=== PATIENT | female | born 1965 | race Caucasian/White ===

== ENCOUNTER 2024-12-19 17:08 | Emergency (ER) | payer OTHER, SELFPAY ==
--- NOTE | ~2024-12-19 | XR_ITS ---
HISTORY: rolled injury/lateral pain COMPARISON: None TECHNIQUE: 3 views of the left ankle were performed FINDINGS: Acute comminuted fracture of the distal fibula is identified with significant overlying soft tissue s welling. The ankle mortise is preserved. Bone mineralization is age-appropriate. IMPRESSION: Acute comminuted fracture of the distal fibula with significant overlying soft tissue sw elling. Reviewed, dictated and finalized at location A. [facility] IMPRESSION: Acute comminuted fracture of the distal fibula with significant ov erlying soft tissue swelling.
--- OUTSIDE RECORDS SUMMARY | 2024-12-19 17:21 | XMS_ITS | Clinical Summary ---
Author Organization [facility] Address [address] [place] [phone] Phone Care Team Providers Care Family Program Specialist Name Role Phone Melissa Corrigan MD Primary Care Provider [phone] Allergies Active Allergy Reactions Criticality Noted Date Comments Penicillins Nausea and Vomiting High 06/06/2019 Medications No known medications Active Problems Problem Noted Date Diagnosed Date Closed fracture of right tibial plateau Closed fracture of right proximal tibia Family History Medical History Relation Name Comments Unknown Father Unknown Mother Relation Name Status Comments Father Mother Social History Tobacco Use Types Packs/Day Years Used Date Smoking Tobacco: Never Smokeless Tobacco: Never Tobacco Cessation:Counseling Given: No Alcohol Use Standard Drinks/Week Comments Yes 0 (1 standard drink = 0.6 oz pur e alcohol) rarely Feeling Safe Answer Date Recorded Within the last year, have y ou been afraid of your partner or ex-partner? Patient declined 12/19/2020 Within the last year, have y ou been humiliated or emotionally abused in other ways by your partner or ex-partner? Patient declined 12/19/2020 Within the last year, have y ou been kicked, hit, slapped, or otherwise physically hurt by your partner or ex-partner? Patient declined 12/19/2020 Within the last year, have y ou been raped or forced to have any kind of sexual activity by your partner or ex-partner? Patient declined 12/19/2020 Social Connections Answer Date Recorded In a typical week, how many times do you talk on the phone with family, friends, or neighbors? Patient declined 12/19/2020 How often do you get togethe r with friends or relatives? Patient declined 12/19/2020 How often do you attend denominational or worship serv ices? Patient declined 12/19/2020 Do you belong to any clubs o r organizations such as denominational groups, unions, fraternal or athletic groups, or school groups? Patient declined 12/19/2020 How often do you attend meet ings of the clubs or organizations you belong to? Patient declined 12/19/2020 Are you , , di vorced, , never , or living with a partner? Patient declined 12/19/2020 Financial Resource Strain Answer Date R ecorded How hard is it for you to pa y for the very basics like food, housing, medical care, and heating? Patient declined 12/19/2020 Food Insecurity Answer Date Recorded Within the past 12 months, y ou worried that your food would run out before you got the money to buy more. Patient declined Within the past 12 months, t he food you bought just didn't last and you didn't have money to get more. Patient declined Transportation Needs Answer Date Record ed In the past 12 months, has l ack of transportation kept you from medical appointments or from getting medications? Patient declined 12/19/2020 In the past 12 months, has l ack of transportation kept you from meetings, work, or from getting things needed for daily living? Patient declined 12/19/2020 Comments No Sex and Gender Information Value Date Recorded Sex Assigned at Not on file Legal Sex Female 7:16 PM CDT Gender Identity Not on file Sexual Orientation Not on file Last Filed Vital Signs Vital Sign Reading Time Taken Comments Blood Pressure 112/81 04/14/2021 12:00 PM CDT Pulse 78 04/14/2021 12:00 PM CDT Temperature 36.7 C (98.1 F) 04/14/2021 11:05 AM CDT Respiratory Rate 18 04/14/2021 12:00 PM CDT Oxygen Saturation 96% 04/14/2021 12:00 PM CDT Inhaled Oxygen Concentration - - Weight 93.6 kg (206 lb 4.8 oz) 04/14/2021 11:05 AM CDT Height 160 cm (5' 3 ) 04/14/2021 11:05 AM CDT Body Mass Index 36.54 04/14/2021 11:05 AM CDT Plan of Treatment Health Maintenance Due Date Last Done Comments DTAP/TDAP/TD VACCINES (1 - Tdap) 1986 HEPATITIS B VACCINES (1 of 3 - 19+ 3-dose series) 1986 CERVICAL CANCER SCREENING 1997 BREAST CANCER SCREENING 2007 COLORECTAL SCREENING 2012 Colorectal Cancer Screening 2012 FIT-DNA Q 3 years 2012 FIT/FOBT Q 1 year 2012 Flex Sig/CT Colonography Q 5 years 2012 ZOSTER VACCINE (1 of 2) 2017 INFLUENZA VACCINE (#1) 2024 PNEUMOCOCCAL VACCINE 0-64 YEARS Aged Out No longer eligible based on patient's age to complete this topic Medical Devices Implanted Type Area Medical Massage Therapist Device Identifier Shelf Expiration Date Model / Serial / Lot Cerament Bone Void Filler Implanted:Qty: 1 on 06/21/2019 by Geo Tang DO at [facility] Bone Right: Tibia HARDIN NEPHEW ORTHO 11/26/2021 [id number] / / [id number] Description:REQUISITION # [id number]. Mesh Mesh Bladder Plate Tib L/P Loc 3.5mm 13h [id number] - [id number] Implanted:Qty: 1 on 06/21/2019 by Geo Tang DO at [facility] Plate Right: Tibia HARDIN NEPHEW ORTHO [id number] / / LOAD 113, STERILIZED 12/25/18 Plate Vlp Fib Lat/Dist 3.5mm 6517-1286 - [id number] Implanted:Qty: 1 on 06/21/2019 by Geo Tang DO at [facility] Plate Right: Tibia HARDIN NEPHEW ORTHO [id number] / / LOAD 35, STERILIZED 06/05/19 Screw Herminio T20 3.5x30mm [id number] - [id number] Implanted:Qty: 1 on 06/21/2019 by Geo Tang DO at [facility] Screw Right: Tibia HARDIN NEPHEW ORTHO [id number] / / LOAD 35, STERILIZED 06/05/19 Description:All S&N tibial c omponents are processed on requisition,[id number]. Screw Herminio T20 3.5x38mm [id number] - [id number] Implanted:Qty: 1 on 06/21/2019 by Geo Tang DO at [facility] Screw Right: Tibia HARDIN NEPHEW ORTHO [id number] / / LOAD 35, STERILIZED 06/05/19 Screw Herminio T20 3.5x55mm 2101-4847 - [id number] Implanted:Qty: 1 on 06/21/2019 by eGo Tang DO at [facility] Screw Right: Tibia HARDIN NEPHEW ORTHO [id number] / / LOAD 35, STERILIZED 06/05/19 Screw Herminio T20 3.5x60mm [id number] - [id number] Implanted:Qty: 1 on 06/21/2019 by Geo Tang DO at [facility] Screw Right: Tibia HARDIN NEPHEW ORTHO [id number] / / LOAD 35, STERILIZED 06/05/[address] Loc 3.5x22mm 6611-8384 - [id number] Implanted:Qty: 2 on 06/21/2019 by Geo Tang DO at [facility] Screw Right: Tibia HARDIN NEPHEW ORTHO [id number] / / LOAD 35, STERILIZED 06/05/[address] Loc 3.5x65mm 3517-2453 - [id number] Implanted:Qty: 1 on 06/21/2019 by Geo Tang DO at [facility] Screw Right: Tibia HARDIN NEPHEW ORTHO [id number] / / LOAD 35, STERILIZED 06/05/[address] Loc 3.5x70mm 0588-2512 - [id number] Implanted:Qty: 1 on 06/21/2019 by Geo Tang DO at [facility] Screw Right: Tibia HARDIN NEPHEW ORTHO [id number] / / LOAD 35, STERILIZED 06/05/[address] 3.5x18mm 7249-4811 - [id number] Implanted:Qty: 1 on 06/21/2019 by Geo Tang DO at [facility] Screw Right: Tibia HARDIN NEPHEW ORTHO [id number] / / LOAD 35, STERILIZED 06/05/[address] 3.5x22mm 4006-8357 - [id number] Implanted:Qty: 1 on 06/21/2019 by Geo Tang DO at [facility] Screw Right: Tibia HARDIN NEPHEW ORTHO [id number] / / LOAD 35, STERILIZED 06/05/19 Screw Cecelia Loc 3.5x55mm Implanted:Qty: 1 on 06/21/2019 by Geo Tang DO at [facility] Screw Right: Tibia HARDIN NEPHEW ORTHO [id number] / / Screw St Loc 3.5x60mm 0314-2274 - [id number] Implanted:Qty: 1 on 06/21/2019 by Geo Tang DO at [facility] Screw Right: Tibia HARDIN NEPHEW ORTHO [id number] / / Screw Cecelia Loc 3.5x22mm Implanted:Qty: 1 on 06/21/2019 by Geo Tang DO at [facility] Screw Right: Tibia HARDIN NEPHEW ORTHO [id number] / / 3 Hole Plate Implanted:Qty: 1 on 06/21/2019 by Geo Tang DO at [facility] Right: Tibia HARDIN NEPHEW ORTHO [id number] / / LOAD 35, STERILIZED 06/05/19 Description:S&N SMALL FRAG S ET Explanted Type Area Medical Massage Therapist Device Identifier Shelf Expiration Date Model / Serial / Lot Quick Clamp 10.5mm To 5mm Implanted:Qty : 6 on 06/07/2019 by Geo Tang DO at [facility] Explanted:Qty : 6 on 06/21/2019 at [facility] Clamp Right: Leg HARDIN NEPHEW [id number] / / LOAD 16 STERILIZED 06/01/2019 Description:ALL HARDIN & NEPH EW COMPONETS ON REQUISITION# [id number] Quick Clamp 10.5mm To 10.5mm Implanted:Qty : 1 on 06/07/2019 by Geo Tang DO at [facility] Explanted:Qty : 1 on 06/21/2019 at [facility] Clamp Right: Leg HARDIN NEPHEW [id number] / / LOAD 16 STERILIZED 06/01/2019 Bar Jetx 350mm [id number] - [id number] Implanted:Qty : 2 on 06/07/2019 by Geo Tang DO at [facility] Explanted:Qty : 2 on 06/21/2019 at [facility] Integral Right: Leg HARDIN NEPHEW ORTHO [id number] / / LOAD 16 STERILIZED 06/01/2019 Bar Jetx 500mm [id number] - [id number] Implanted:Qty : 1 on 06/07/2019 by Geo Tang DO at [facility] Explanted:Qty : 1 on 06/21/2019 at [facility] Integral Right: Leg HARDIN NEPHEW ORTHO [id number] / / LOAD 16 STERILIZED 06/01/2019 Pin Half Tin 5x35mm Short [id number] - [id number] Implanted:Qty : 4 on 06/07/2019 by Geo Tang DO at [facility] Explanted:Qty : 4 on 06/21/2019 at [facility] Pin Right: Leg HARDIN NEPHEW ORTHO [id number] / / Insurance BCBS BLUE ACCESS/TRUE BLUE PPO RX [employer] RX Member Subscriber Plan / Payer (Ef fective for All Dates) Name:Barbara Branham Relation to Subscriber:Self Name:Barbara Branham Payer ID:Not on file Type:RX LDI Address: [address] Advance Directives For more information, please contact: [phone] * Full Code (Latest Code Status on File) Date Activated Date Inactivated Comments 06/21/2019 12:28 PM 06/24/2019 9:20 PM * Full Code Date Activated Date Inactivated Comments 06/21/2019 8:56 AM 06/21/2019 12:28 PM * Full Code Date Activated Date Inactivated Comments 06/07/2019 1:59 AM 06/10/2019 8:24 PM Care Teams Family Program Specialist Relationship Specialty Start Date End Date Melissa Corrigan MD PCP - General Family Practice 12/19/20
--- OUTSIDE RECORDS SUMMARY | 2024-12-19 17:21 | XMS_ITS | Referral Summary ---
Author Organization [address] Address [address] [place] [phone] Care Team Providers Care Sas Developer Analyst Name Role Phone Melissa Corrigan MD Primary Care Provider [phone] Allergies Active Allergy Reactions Criticality Noted Date Comments Penicillins Nausea & Vomiting Low 07/09/2021 Medications ketorolac (TORADOL) 10 mg tablet ketorolac 10 mg tablet TK 1 T PO Q 6 HOURS PRF PAIN Active sertraline (ZOLOFT) 100 mg tablet sertraline 100 mg tablet TAKE 2 TABLETS BY MOUTH DAILY Active Active Problems Problem Noted Date Diagnosed Date Anxiety 11/21/2023 Closed fracture of right tibial plateau 11/21/19 24 Cough 11/21/2023 Depressive disorder 11/21/2023 Urinary tract infectious disease 11/21/2023 Chronic pain of right knee 07/09/2021 Flexion contracture of right knee 07/09/2021 Social History Tobacco Use Types Packs/Day Years Used Date Smoking Tobacco: Never Smokeless Tobacco: Never Tobacco Cessation:Counseling Given: Not Answered Comments:Not applicable Personal Safety Answer Date Recorded Getting School Help Needed Not on file 11/21 Comments Unknown Sex and Gender Information Value Date Recorded Sex Assigned at Not on file Legal Sex Female 9:14 AM CDT Gender Identity Not on file Sexual Orientation Not on file Last Filed Vital Signs Vital Sign Reading Time Taken Comments Blood Pressure 120/90 11/21/2023 8:10 AM LIQUIFIED NATURAL GAS SPECIALIST Pulse 70 11/21/2023 8:10 AM LIQUIFIED NATURAL GAS SPECIALIST Temperature 36.4 C (97.6 F) 11/21/2023 8:10 AM LIQUIFIED NATURAL GAS SPECIALIST Respiratory Rate 18 11/21/2023 8:10 AM LIQUIFIED NATURAL GAS SPECIALIST Oxygen Saturation 97% 11/21/2023 8:10 AM LIQUIFIED NATURAL GAS SPECIALIST Inhaled Oxygen Concentration - - Weight 72.6 kg (160 lb) 11/21/2023 8:10 AM LIQUIFIED NATURAL GAS SPECIALIST Height 160 cm (5' 3 ) 11/21/2023 8:10 AM LIQUIFIED NATURAL GAS SPECIALIST Body Mass Index 28.34 11/21/2023 8:10 AM LIQUIFIED NATURAL GAS SPECIALIST Plan of Treatment Not on file Insurance [address] [address] [facility] CHOICE PLUS Care Teams Sas Developer Analyst Relationship Specialty Start Date End Date Melissa Corrigan MD [facility] [place] [address] PCP - General Family Medicine 06/27/21
--- OUTSIDE RECORDS SUMMARY | 2024-12-19 17:21 | XMS_ITS | Clinical Summary ---
Author Organization [facility] Address [address] [place] [address] Care Team Providers Care Reinforced Ironworker Name Role Phone Unavailable Primary Care Provider Unavailabl e Social History Tobacco Use Types Packs/Day Years Used Date Smoking Tobacco: Never Assessed Comments Unknown Sex and Gender Information Value Date Recorded Sex Assigned at Not on file Legal Sex Female 4:45 PM CDT Gender Identity Not on file Sexual Orientation Not on file Plan of Treatment Health Maintenance Due Date Last Done Comments Cervical Cancer Screening Pa p Smear (Age 30 to 64) Every 3 Years 1967 Colorectal Cancer Screening Colonoscopy (10 Years) 1967 Annual Physical 1970 Hepatitis C 1985 DTaP, Tdap and Td Vaccines ( 1 - Tdap) 1986 Hepatitis B Vaccines (1 of 3 - 19+ 3-dose series) 1986 Cervical Cancer Screening Pa p with HPV Testing (Age 30 to 64) Every 5 Years 1997 Cervical Cancer Screening with HPV 1997 Mammogram Screening 2007 Zoster Vaccines (1 of 2) 2017 COVID-19 Vaccine (2023-2 5 season) 2024 Influenza Adult (#1) 2024 Meningococcal B Vaccine Aged Out No l onger eligible based on patient's age to complete this topic Meningococcal Vaccine Aged Out No lópez keyon eligible based on patient's age to complete this topic Pneumococcal Vaccine: Pediat rics (0 to 5 Years) and At-Risk Patients (6 to 64 Years) Aged Out No longer eligible b ased on patient's age to complete this topic RSV Immunizations Under 20 Months Aged Out No longer eligible based on patient's age to complete this topic Advance Directives Documents on File Type Date Recorded Patient Area Development Consultant Expl anation Advance Directives and Living Will 08/07/2018 12:00 AM ADVANCED DIRECTIVES
--- OUTSIDE RECORDS SUMMARY | 2024-12-19 17:21 | XMS_ITS | Clinical Summary ---
Author Organization [address] Address [address] [place] [phone] Care Team Providers Care Laborer Brush Clearing Name Role Phone Melissa Corrigan MD Primary Care Provider [phone] Allergies Active Allergy Reactions Criticality Noted Date [...] 07/09/2021 Flexion contracture of right knee 07/09/2021 Surgical History Surgery Date Site/Laterality Comments APPENDECTOMY 2015? FRACTURE SURGERY May 2019 HYSTERECTOMY February 2004? LASIK 2007? Family History Medical History Relation Name Comments Heart attack Maternal Grandfather Dante George Stroke Maternal Grandmother Xiomara George Relation Name Status Comments Maternal Grandfather Dante George Maternal Grandmother Xiomara George Social History Tobacco Use Types Packs/Day Years [...] on file Sexual Orientation Not on file Obstetrics History Last Filed Vital Signs Vital Sign Reading Time Taken Comments Blood Pressure 120/90 11/21/2023 8:10 AM AIRPORT OPERATIONS COORDINATOR Pulse 70 11/21/2023 8:10 AM AIRPORT OPERATIONS COORDINATOR Temperature 36.4 C (97.6 F) 11/21/2023 8:10 AM AIRPORT OPERATIONS COORDINATOR Respiratory Rate 18 11/21/2023 8:10 AM AIRPORT OPERATIONS COORDINATOR Oxygen Saturation 97% 11/21/2023 8:10 AM AIRPORT OPERATIONS COORDINATOR Inhaled Oxygen Concentration - - Weight 72.6 kg (160 lb) 11/21/2023 8:10 AM AIRPORT OPERATIONS COORDINATOR Height 160 cm (5' 3 ) 11/21/2023 8:10 AM AIRPORT OPERATIONS COORDINATOR Body Mass Index 28.34 11/21/2023 8:10 AM AIRPORT OPERATIONS COORDINATOR Plan of Treatment Health Maintenance Due Date Last Done Comments Breast Cancer Screening-Mammogram 1967 Colon Cancer Screening-Colonoscopy 1967 Depression Screening 1967 Hepatitis C Screening 1967 DTaP/Tdap/Td Vaccine (1 - Tdap) 1978 Hepatitis B Screening 1985 Regular Well Visit/Exam 18-64 1985 Zoster Vaccine (2 of 2) 04/11/2023 02/14/2023 Influenza Vaccine (#1) 2024 Pneumococcal vaccine <65 Aged Out No longer eligible based on patient's age to complete this topic Insurance [facility] CHO[facility] PLUS Care Teams Laborer Brush Clearing Relationship Specialty Start Date End Date Melissa Corrigan MD [facility] [place] [address] PCP - General Family Medicine 06/27/21
--- OUTSIDE RECORDS SUMMARY | 2024-12-19 17:22 | XMS_ITS | Clinical Summary ---
Author Organization [facility] [employer] Address [address] [place] [address] Care Team Providers Care Spring Layer Name Role Phone Melissa Corrigan MD Primary Care Provider [phone] Source Comments [facility] [employer],non-owned Affiliates and Associated Physician Practices is amultiple site organization consisting of ambulatory clinics and hospital sitesin [place], [place], [place] and [place]. This disclosure is being madepursuant to the Care Everywhere program and may not contain all information available regarding this patient. Last updated 18.[facility] [employer] Allergies Active Allergy Reactions Criticality Noted Date Comments Penicillins Nausea and/or Vomiting 01/17/2020 Medications * Be aware that medications may not be up to date on this document. Alwaysverify current medications with the patient. Medication Sig Dispensed Refills Start Date End Date Status HYDROcodone-acetamino phen (NORCO) 5-325 MG tablet Take 1 tablet by mouth every 6 hours as needed for Pain 20 tablet 03/02/2020 Active Social History Tobacco Use Types Packs/Day Years Used Date Smoking Tobacco: Never Assessed Sex and Gender Information Value Date Recorded Sex Assigned at Not on file Gender Identity Not on file Sexual Orientation Not on file Last Filed Vital Signs Vital Sign Reading Time Taken Comments Blood Pressure 115/75 03/02/2020 11:00 AM CDT Pulse 96 03/02/2020 9:31 AM CDT Temperature 36.5 C (97.7 F) 03/02/2020 9:31 AM CDT Respiratory Rate 18 03/02/2020 9:31 AM CDT Oxygen Saturation 93% 03/02/2020 11:00 AM CDT Inhaled Oxygen Concentration - - Weight 77.1 kg (170 lb) 03/02/2020 9:31 AM CDT Height 160 cm (5' 3 ) 03/02/2020 9:31 AM CDT Body Mass Index 30.11 03/02/2020 9:31 AM CDT Plan of Treatment Health Maintenance Due Date Last Done Comments COLOGUARD (AGES 45-75) - COL ON CA SCREENING 1967 COLON MONITORING 1967 COLONOSCOPY - COLON CA SCREENING 1967 CT COLONOGRAPHY - COLON CA SCREENING 1967 Colorectal Cancer Screening 1967 FIT - COLON CA SCREENING 1967 FLEX SIG - COLON CA SCREENING 1967 LIPID TESTING 1967 MAMMOGRAM 1967 HIV SCREENING 1982 HEPATITIS C SCREENING 12/04/1985 DTAP/TDAP/TD VACCINES (1 - Tdap) 1986 HEPATITIS B VACCINE (1 of 3 - 19+ 3-dose series) 1986 PAP with HPV 1997 PNEUMOCOCCAL VACCINE 50+ (1 of 1 - PCV) 2017 ZOSTER VACCINE (1 of 2) 2017 COVID-19 VACCINE (1 - 2023-2 5 season) 2024 INFLUENZA VACCINE (#1) 2024 DEPRESSION SCREENING 10/27/2024 HIB VACCINE Aged Out No longer eligi ble based on patient's age to complete this topic HPV VACCINE Aged Out No longer eligi ble based on patient's age to complete this topic MENINGOCOCCAL (Group B) VACCINE Aged Out No longer eligible based on patient's age to complete this topic MENINGOCOCCAL VACCINE Aged Out No lópez keyon eligible based on patient's age to complete this topic PNEUMOCOCCAL VACCINE Aged Out No long er eligible based on patient's age to complete this topic Care Teams Spring Layer Relationship Specialty Start Date End Date Melissa Corrigan MD [facility] [place] [address] PCP - General 12/02/18
--- OUTSIDE RECORDS SUMMARY | 2024-12-19 17:22 | XMS_ITS | Encounter Summary ---
Author Organization [facility] Address [address] [place] [address] Care Team Providers Care Fibrous Plasterer Name Role Phone Melissa Corrigan MD Primary Care Provider [phone] Encounter Details Date Type Department Care Team (Late st Contact Info) Description 12/03/2018 Lab Requisition [facility] Care [facility] [address] [facility] [facility] [place] [address] Tamiko Kelly MD [address] [facility] [address] [place] [address] Social History Tobacco Use Types Packs/Day Years Used Date Smoking Tobacco: Never Assessed Sex and Gender Information Value Date Recorded Sex Assigned at Not on file Gender Identity Not on file Sexual Orientation Not on file documented as of this encounter Plan of Treatment Not on file documented as of this encounter Procedures Procedure Name Priority Date/Time Associated Diagnosis Comments DERMATOPATHOLOGY Routine 12/02/2018 12:0 0 AM DISTILLERY SUPERVISOR documented in this encounter Results * DERMATOPATHOLOGY (12/02/2018 12:00 AM DISTILLERY SUPERVISOR) Case Report Dermatopathology Report Case: [id number] Authorizing Provider: Tamiko Kelly MD Collected: 12/02/2018 12:00 AM Pathologist: Lizabeth Canales MD Received: 12/03/2018 09:28 AM Specimen: Skin, left breast 9 1:51 PM DISTILLERY SUPERVISOR DERMATOPATHOLOGY LABORATORY Final Diagnosis Specimen A. SKIN, left breast: LICHEN PLANUS-LIKE KERATOSIS (BENIGN LICHENOID KERATOSIS) (L82.1) PRESENT AT MARGIN 1:51 PM [facility] DERMATOPATHOLOGY LABORATORY Clinical History R/O BCC, irritated, non-healing. Check margins. 1:51 PM [facility] DERMATOPATHOLOGY LABORATORY Gross Description Specimen A: Received is one formalin filled container labeled with the patient's name and designated left breast. The specimen consists of a shave measuring [id number]. The margin is inked green. Jar 0. 1:51 PM [facility] DERMATOPATHOLOGY LABORATORY Microscopic Description Specimen A. SKIN, left breast: The epidermis is mildly acanthotic. There is a lichenoid infiltrate with vacuolar changes of basilar keratinocytes and scattered necrotic keratinocytes. This lesion is present at the margin of the specimen. 1:51 PM [facility] DERMATOPATHOLOGY LABORATORY Disclaimer An external and internal positive and negative controls are appropriate for the histochemical, immunohistochemical and immunofluorescence stain(s) in this case (if any), except where stated explicitly. The performance characteristics of the stain(s) cited in this report were developed and its performance characteristic determined by the Dermatopathology Laboratory at [facility], directed by Dr. Primo Montalvo. These tests need not be, and therefore are not, approved by the [place] Food and Drug Administration. The tests are used for clinical purposes. Billing Codes Specimen Charges Stain Charges 69459 1 1:51 PM [facility] DERMATOPATHOLOGY LABORATORY Embedded Images 1:51 PM [facility] DERMATOPATHOLOGY LABORATORY Pathology/Cytolog y TISSUE SPECIMEN FROM SKIN / Unknown 12/02/2018 12/03/2018 9:28 AM DISTILLERY SUPERVISOR Tamiko Kelly MD LAB - PATHOLOGY/CYT OLOGY ORDERABLES DERMATOPATHOLOGY LABORATORY [facility] - Department of Dermatology [address] [facility] [place] [address], [facility] [phone] documented in this encounter Visit Diagnoses Not on filedocumented in this encounter Care Teams Fibrous Plasterer Relationship Specialty Start Date End Date Melissa Corrigan MD [address] [place] [address] PCP - General 12/02/18 documented as of this encounter
--- OUTSIDE RECORDS SUMMARY | 2024-12-19 17:22 | XMS_ITS | Continuity of Care Document ---
Author Organization [facility] Address [address] [place] [address] Phone Care Team Providers Care Assistant Infant Toddler Teacher Name Role Phone Roberto Carlos Lou Unavailable Unavailable Allergies, Adverse Reactions, Alerts Substance Reaction Status Criticality Penicillins Rash, Swelling, ItchyEyes, Cough Active No Information Procedures Procedure Date X-ray exam knee, 4+ views Office/outpatient visit,est, mod 2020 Asp/inject major joint or bursa w/o US g uidance Kenalog Triamcinolone acetonide inj Xray Copy Custom Fusion OA Knee Brace X-ray exam knee, 3 views Office/outpatient visit,est, mod 2019 Asp/inject major joint or bursa w/o US g uidance Kenalog Triamcinolone acetonide inj X-ray exam tib/fib, 2 views Xray Copy Xray Copy X-ray exam tib/fib, 2 views X-ray exam knee, 4+ views Post Operative T Scope Knee Brace, Off T he Shelf Office/outpatient visit,new, mod 2018 Advance Directives Directive Yes / No Effective Date File Name No Information Encounters Encounter Description Practice Location Reason(s) For Visit Diagnoses Date Provider Providers Copied on Encounter Office/outpa tient visit,est, [facility], [address] [address], [place], [place], [id number], [place] tel:[phone] [facility] right knee (chief complaint) Pain in right kneeUnilateral primary osteoarthritis , right knee Sep-0 1 Dasha Ngoer. [address] [facility] [address], [place], [place], [id number], [place]. tel:[phone] [facility], [address] [address], [place], [place], [id number], [place] tel:[phone] [facility] No Information Sep-0 1 Administrati ve Provider. [address] [address], [place], [place], [id number], [place]. tel:[phone] [facility], [address] [address], [place], [place], [id number], [place] tel:[phone] [facility] Unsp fracture of upper end of unsp tibia, init for clos fx Dec-1 0 Dinan Florecita. [address] [facility] [address], [place], [place], [id number], [place]. tel:[phone] Office/outpa tient visit,est, [facility], [address] [address], [place], [place], [id number], [place] tel:[phone] [facility] Right Knee (chief complaint) Fracture of upper end of tibia, initial encounter for closed fracture Mar-0 0 Dasha Ngoer. [address] [facility], [facility] [[email or web address] [address], [place], [place], [id number], [place]. tel:[phone] [facility], [address] [address], [place], [place], [id number], [place] tel:[phone] [facility] No Information Mar-0 0 Administrati ve Provider. [address] [facility], [address] [address], [place], [place], [id number], [place]. tel:[phone] [facility], [address], [id number], tel:[phone] [facility] No Information Administrati ve Provider. [address] [facility], [facility] [[email or web address] [address], [place], [place], [id number], [place]. tel:[phone] Office/outpa tient visit,new, [facility], [address], [id number], tel:[phone] [facility] Right Knee (chief complaint) Pain in right kneeFracture of upper end of tibia, initial encounter for closed fracture Dasha Azevedo. [address] [facility], [address] [address], [place], [place], [id number], [place]. tel:[phone] Family History Family Member Type Diagnosis Age At Onset Mother Problem (finding) Stroke Mother Problem (finding) Hypertension Mother Problem (finding) Kidney Disease Payers Payer name Insurance type Covered green party ID Authorargelia tian(s) Sally Meza [facility] [id number] Social History Type Description Quantity Date Captured Comments Alcohol Use Details Unknown Caffeine Use Details Unknown Tobacco Use Status No Information Smoking Status Never smoker Non-Smoking Tobacco Use Details : No Details Available : No Details Available Sex Female Vital Signs Date / Time: Height Weight BMI Pulse Rate Blood Pressure Temperature Respiratory Rate Body Surface Area Head Circumference Head Circ. Percentile Wt./Jonah. Percentile BMI percentile Pulse Ox Inhaled Ox 8:02 AM 63.00 in 68.039 kg (150.00 lbs) 26.5 7 kg/m eter (2) Chief Complaint And Reason For Visit From encounter dated '06/27/2021 08:00'. right knee (chief complaint). Description: Barbara is a 55 year-old female who presents to the office for evaluation of right knee pain. She is approximately one year status post ORIF of her complex right tibial plateau fracture. This was fixed through a midline approach at [facility] by the trauma service.She did have some fibrosis this is somewhat resolving. She does have some knee pain predominantly medially. She has medial sided arthritis pain. Is tolerable. Range of motion is improving although somewhat limited in flexion. She wishes to go on a trip to [place] next year. Reason For Referral Reason For Referral No Information Plan Of Treatment Date Type Action Status Referral Ordered: X-ray exam tib/fib, 2 views RT tibia ordered Referral Ordered: X-ray exam knee, 3 views RT knee ordered Referral Ordered: CT scan Lower Ext W/o Contrast RT knee ordered Referral Ordered: X-ray exam tib/fib, 2 views RT ordered Referral Ordered: X-ray exam knee, 4+ views RT knee ordered History Of Present Illness Encounter Date Complaint History Of Prese nt Illness right knee Barbara is a 55 year -old female who presents to the office for evaluation of right knee pain. She is approximately one year status post ORIF of her complex right tibial plateau fracture. This was fixed through a midline approach at [facility] by the trauma service. She did have some fibrosis this is somewhat resolving. She does have some knee pain predominantly medially. She has medial sided arthritis pain. Is tolerable. Range of motion is improving although somewhat limited in flexion. She wishes to go on a trip to [place] next year. Right Knee Right Knee Barbara is a pleasan t 53-year-old female, she presents today for evaluation of her right knee injury. She underwent an ORIF with Dr. Geo Byrd on June 06, 2019. She fell from a boat ladder. She sustained a closed comminuted tibial plateau fracture. She underwent initial external fixation. This was converted to internal fixation with 3 plates. All 3 plates were placed through an anterior incision. She is currently using crutches and has some stiffness. She continues to have pain. She seeks a second opinion as she feels that she does not have all of the information from Dr. Byrd's office. She denies any postoperative complications she denies any sign of compartment syndrome or neurological injury. She does present with her previous x-rays for review. Functional Status Date Functional Assessmen t No Information Instructions Date Instruction Additional Infor mation After verbal consent was obtained. The patient's right knee was prepped and draped using Betadine and alcohol. A 22-gauge syringe was used to introduce 40 mg of Kenalog and 3 cc of lidocaine through anterior lateral portal. Patient tolerated this procedure well. A sterile dressing was applied. There were no complications. 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 We discussed that this reconstruction would be fairly involved possibly 2 stages removing the plate and screws, then coming back 3-6 months later and placing an arthroplasty. Currently the patient is fairly functional. She has minimal pain and some stiffness. I have explained to her that her stiffness may or may not resolve with arthroplasty, in the predominately the advantage of arthroplasty would be eradication of posttraumatic pain and arthritis. X-rays were reviewed with the patient today. Treatment plan will consist of continued stretching and activity and an intra-articular injection Patient Care Teams Name Effective Dates (start - stop) Status Members No Information
--- OUTSIDE RECORDS SUMMARY | 2024-12-19 17:22 | XMS_ITS | Patient Health Summary ---
Author Organization [facility] Address [address] 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 This disclosure is being madepursuant to the Care Everywhere program and may not contain all information available regarding this patient. Last updated 18.[facility] Allergies * Penicillins(Nausea and/or Vomiting) Medications * Be aware that medications may not be up to date on this document. Alwaysverify current medications with the patient. * HYDROcodone-acetaminophen (NORCO) 5-325 MG tablet(Started 03/02/2020) Take 1 tablet by mouth every 6 hours as needed for Pain Social History Tobacco Use Types Packs/Day Years [...] Mass Index 30.11 03/02/2020 9:31 AM CDT Procedures * DERMATOPATHOLOGY(Performed 02/22/2021) Performed for Neoplasm of uncertain behavior of skin * CT ABDOMEN PELVIS W CONTRAST(Performed 03/02/2020) Performed for Acute right flank pain, Abdominal pain, epigastric * US ABDOMEN LIMITED(Performed 03/02/2020) Performed for Abdominal pain, epigastric * SLIDE SCAN HEMATOLOGY(Performed 03/02/2020) * LIPASE BLOOD(Performed 03/02/2020) * URINALYSIS REFLEX MICROSCOPIC REFLEX CULTURE(Performed 03/02/2020) * COMPREHENSIVE METABOLIC PANEL(Performed 03/02/2020) * CBC W AUTO DIFFERENTIAL(Performed 03/02/2020) * CARDIAC EKG ORDER(Performed 01/18/2020) * CT ANGIO CHEST PULM EMBOLISM(Performed 01/17/2020) Performed for Chest pain, unspecified type * BASIC METABOLIC PANEL (CALCIUM TOTAL)(Performed 01/17/2020) * CBC W AUTO DIFFERENTIAL(Performed 01/17/2020) * D-DIMER(Performed 01/17/2020) * TROPONIN I(Performed 01/17/2020) * XR CHEST 2VW(Performed 01/17/2020) Performed for Chest pain, unspecified type * EKG 12-LEAD(Performed 01/17/2020) Performed for Chest pain, unspecified type * DERMATOPATHOLOGY(Performed 12/02/2018) * MAMMO LEFT DIAGNOSTIC(Performed 09/26/2016) Performed for Abnormal mammogram Results * DERMATOPATHOLOGY (02/22/2021 12:00 AM CDT) Only the most recent of2 resultswithin the time period is included. Case Report Dermatopathology Report Case: [id number] Authorizing Provider: Germania Prado MD Collected: 02/22/2021 12:00 AM Ordering Location: [facility] DermPath Lab Received: 02/23/2021 10:36 AM Pathologist: Sylvia Borges MD Specimen: Skin, right lower sandoval 10:49 AM CDT DERMATOPATHOLOGY LABORATORY Final Diagnosis Specimen A. SKIN, right lower sandoval: DERMAL SCAR (L90.5) PRESENT AT MARGIN 10:49 AM CDT DERMATOPATHOLOGY LABORATORY Clinical History Neoplasm of uncertain behavior. Check margins. 10:49 AM CDT DERMATOPATHOLOGY LABORATORY Gross Description Specimen A: Received is one formalin filled container labeled with the patient's name and designated right lower sandoval. The specimen consists of a non-oriented ellipse of skin measuring [id number]. The margin is inked green. The specimen is bisected lengthwise and submitted in 1 cassette. Jar 0. 10:49 AM CDT DERMATOPATHOLOGY LABORATORY Microscopic Description Specimen A. SKIN, right lower sandoval: There are fibroblasts and collagen bundles oriented parallel to the skin surface with elongated blood vessels, some of which are oriented perpendicular to the skin surface. This scar is present at the base of the specimen. 10:49 AM CDT DERMATOPATHOLOGY LABORATORY Disclaimer An external and internal positive and negative controls are appropriate for the histochemical, immunohistochemical and immunofluorescence stain(s) in this case (if any), except where stated explicitly. The performance characteristics of the stain(s) cited in this report were developed and its performance characteristic determined by the Dermatopathology Laboratory at [facility], directed by Dr. Primo Montalvo. These tests need not be, and therefore are not, approved by the [place] Food and Drug Administration. The tests are used for clinical purposes. Billing Codes Specimen Charges Stain Charges 74100 1 10:49 AM CDT DERMATOPATHOLOGY LABORATORY Embedded Images 10:49 AM CDT DERMATOPATHOLOGY LABORATORY Pathology/Cytolog y TISSUE SPECIMEN FROM SKIN / Unknown 02/22/2021 02/23/2021 10:36 AM CDT Germania Prado MD LAB - PATHOLOGY/CYTO LOGY ORDERABLES DERMATOPATHOLOGY LABORATORY [facility] - Department of Dermatology [address], [address] [phone] * CT ABDOMEN PELVIS W CONTRAST (03/02/2020 11:06 AM CDT) Anatomical Region Laterality Modality Abdomen, Pelvis Computed Tomogra phy 03/02/2020 11:3 2 AM CDT Impressions 03/02/2020 11:39 AM CDT Small bilateral pleural effusions with bibasilar atelectasis. Small pericardial effusion. Cholelithiasis. Simple small hepatic cysts. Prior appendectomy and cystectomy, with mild cystocele. Bilateral ovarian cysts. *[place] Radiologist: Darius No on 03/02/2020 at 11:39 AM Narrative 03/02/2020 11:[address] abdomen and pelvis with contrast HISTORY: Right mid back pain and right flank pain. Prior hysterectomy, appendectomy, and bladder suspension. Protocol: Images were obtained following intravenous administration of 80 cc Isovue-370. No oral contrast was given. All CT scans at [facility] are performed using dose optimization techniques as appropriate to a performed exam to include AEC and Adjustment of mA and/or kV according to patient size (as appropriate to indication/reason for exam). FINDINGS: There is bibasilar atelectasis. There are small bilateral pleural effusions. There is a small pericardial effusion. There are 2 adjacent cysts in segment 4A of the liver. There are small calcified gallstones. Spleen size is normal. There is a small accessory splenule. The pancreas, adrenal glands, and kidneys appear unremarkable. There are no renal calculi. There is no hydronephrosis. There is no bowel obstruction or inflammation. The appendix is absent. There is a small fat containing umbilical hernia. Views of the pelvis show a 2.3 cm right ovarian cyst and a 2.3 cm left ovarian cyst. The uterus is absent. The bladder was mildly distended at the time of imaging. There is descent of the bladder base below the pubic symphysis. There are phleboliths in the left hemipelvis. There is no adenopathy, abscess, or ascites. Procedure Note Darius No MD - 03/02/2020 CT abdomen and pelvis with contrast HISTORY: Right mid back pain and right flank pain. Prior hysterectomy, appendectomy, and bladder suspension. Protocol: Images were obtained following intravenous administration of 80 cc Isovue-370. No oral contrast was given. All CT scans at [facility] are performed using dose optimization techniques as appropriate to a performed exam to include AEC and Adjustment of mA and/or kV according to patient size (as appropriate to indication/reason for exam). FINDINGS: There is bibasilar atelectasis. There are small bilateral pleural effusions. There is a small pericardial effusion. There are 2 adjacent cysts in segment 4A of the liver. There are small calcified gallstones. Spleen size is normal. There is a small accessory splenule. The pancreas, adrenal glands, and kidneys appear unremarkable. There are no renal calculi. There is no hydronephrosis. There is no bowel obstruction or inflammation. The appendix is absent. There is a small fat containing umbilical hernia. Views of the pelvis show a 2.3 cm right ovarian cyst and a 2.3 cm left ovarian cyst. The uterus is absent. The bladder was mildly distended at the time of imaging. There is descent of the bladder base below the pubic symphysis. There are phleboliths in the left hemipelvis. There is no adenopathy, abscess, or ascites. IMPRESSION Small bilateral pleural effusions with bibasilar atelectasis. Small pericardial effusion. Cholelithiasis. Simple small hepatic cysts. Prior appendectomy and cystectomy, with mild cystocele. Bilateral ovarian cysts. *[place] Radiologist: Darius No on 03/02/2020 at 11:39 AM Lola Bautista APRN-[facility] CT ORDERAB LES * US ABDOMEN LIMITED(GB /liver/pancreas) (03/02/2020 11:05 AM CDT) Anatomical Region Laterality Modality Abdomen Ultrasound 03/02/2020 11:0 9 AM CDT Impressions 03/02/2020 11:14 AM CDT No evidence of acute cholecystitis. Areas of focal adenomyomatosis versus adherent sludge. No gross gallbladder stones. *[place] Radiologist: Gary Goode on 03/02/2020 at 11:14 AM Narrative 03/02/2020 11:14 AM CDT EXAM: US ABDOMEN LIMITED*[id number] CLINICAL INDICATION: 54 years old Female with Epigastric pain COMPARISON: None TECHNIQUE: Limited views of the right upper abdomen were obtained using harrington scale and limited color Doppler imaging. FINDINGS: The liver demonstrates a normal echotexture. The intrahepatic and extrahepatic ducts were not dilated with the common bile duct measuring 3.5 mm. The gallbladder was physiologically distended; there are a few areas of mural hyperechogenicity that demonstrate twinkle artifact. Could represent adenomyomatosis or small adherent sludge. The gallbladder wall measured 2.9 mm in thickness. No sonographic Fox sign was demonstrated. No pericholecystic fluid was seen. The visualized pancreas is unremarkable. The right kidney is normal in appearance. Procedure Note Gary Goode MD - 03/02/2020 EXAM: US ABDOMEN LIMITED*[id number] CLINICAL INDICATION: 54 years old Female with Epigastric pain COMPARISON: None TECHNIQUE: Limited views of the right upper abdomen were obtained using harrington scale and limited color Doppler imaging. FINDINGS: The liver demonstrates a normal echotexture. The intrahepatic and extrahepatic ducts were not dilated with the common bile duct measuring 3.5 mm. The gallbladder was physiologically distended; there are a few areas of mural hyperechogenicity that demonstrate twinkle artifact. Could represent adenomyomatosis or small adherent sludge. The gallbladder wall measured 2.9 mm in thickness. No sonographic Fox sign was demonstrated. No pericholecystic fluid was seen. The visualized pancreas is unremarkable. The right kidney is normal in appearance. IMPRESSION No evidence of acute cholecystitis. Areas of focal adenomyomatosis versus adherent sludge. No gross gallbladder stones. *[place] Radiologist: Gary Goode on 03/02/2020 at 11:14 AM Lola Bautista [employer] US ORDERAB LES * URINALYSIS REFLEX MICROSCOPIC REFLEX CULTURE (03/02/2020 9:57 AM CDT) Color UA Straw Straw, Yellow 03/02/2020 10:32 AM CDT [facility] Clarity UA Clear Clear 03/02/2020 10:32 AM CDT [facility] Glucose UA Negative Negative 03/02/2020 10:32 AM CDT [facility] Bilirubin UA Negative Negative 03/02/2020 10:32 AM CDT [facility] Ketone UA Negative Negative 03/02/2020 10:32 AM CDT [facility] Specific [place] UA 1.008 1.005 - 1.030 03/02/2020 10:32 AM CDT [facility] Blood UA Negative Negative 03/02/2020 10:32 AM CDT [facility] pH UA 6.0 5.0 - 8.0 pH 03/02/2020 10:32 AM CDT [facility] Protein UA Negative Negative 03/02/2020 10:32 AM CDT [facility] Urobilinogen UA Negative Negative mg/dL 03/02/2020 10:32 AM CDT [facility] Nitrite UA Negative Negative 03/02/2020 10:32 AM CDT [facility] Leukocyte UA Negative Negative 03/02/2020 10:32 AM CDT [facility] Urine Microscopy Urine microscopy not indicated 03/02/2020 10:32 AM CDT [facility] Reflex Status Culture not indicated 03/02/2020 10:32 AM CDT [facility] Urine URINE SPECIMEN OBTAINED BY CLEAN CATCH PROCEDURE / Unknown Collection / Unknown 03/02/2020 9:57 AM CDT 03/02/2020 10:11 AM CDT Narrative [facility] - 03/02/2020 10:32 AM CDT Fareed Greer MD LAB - URINALYSIS ORDERABLES [facility] AT [address] [address] * SLIDE SCAN HEMATOLOGY (03/02/2020 9:57 AM CDT) Platelet Estimation Adequate platelets Normal, Adequate platelets 03/02/2020 11:14 AM CDT [facility] Blood BLOOD SPECIMEN / Unknown Venipuncture / Unknown 03/02/2020 9:57 AM CDT 03/02/2020 10:11 AM CDT Fareed Greer MD LAB - HEMATOLOGY ORDERABLES [facility] AT [address] [address] * (ABNORMAL) CBC W AUTO DIFFERENTIAL (03/02/2020 9:57 AM CDT) Only the most recent of2 resultswithin the time period is included. [facility] WBC 9.2 4.4 - 10.7 x10E9/L 03/02/2020 10:25 AM CDT [facility] WBC Corrected 03/02/2020 10:25 AM CDT [facility] RBC 4.58 3.80 - 5.20 x10E12/L 03/02/2020 10:25 AM CDT [facility] Hemoglobin 14.4 12.0 - 15.6 gm/dL 03/02/2020 10:25 AM CDT [facility] Hematocrit 42.3 35.9 - 45.5 % 03/02/2020 10:25 AM CDT [facility] MCV 92.4 80.7 - 98.3 fl 03/02/2020 10:25 AM CDT [facility] MCH 31.4 26.7 - 34.0 pg 03/02/2020 10:25 AM CDT [facility] MCHC 34.0 30.8 - 35.9 gm/dL 03/02/2020 10:25 AM CDT [facility] Platelet Count 482(H) 153 - 416 x10E9/L 03/02/2020 10:25 AM CDT [facility] RDW-CV 13.2 12.1 - 14.9 % 03/02/2020 10:25 AM CDT [facility] MPV 8.8(L) 9.4 - 12.9 fl 03/02/2020 10:25 AM CDT [facility] Neutrophils % 76.3(H) 44.0 - 73.0 % 03/02/2020 10:25 AM CDT [facility] Lymphocytes % 16.4(L) 20.0 - 43.0 % 03/02/2020 10:25 AM CDT [facility] Monocytes % 4.4(L) 5.0 - 13.0 % 03/02/2020 10:25 AM CDT [facility] Eosinophils % 1.7 0.0 - 6.0 % 03/02/2020 10:25 AM CDT [facility] Basophils % 0.8 0.0 - 2.0 % 03/02/2020 10:25 AM CDT [facility] Immature Granulocytes 0.4 0 - 1 % 03/02/2020 10:25 AM CDT [facility] Neutrophil Absolute 7.04 2.01 - 7.14 x10E9/L 03/02/2020 10:25 AM CDT [facility] Lymphocytes Absolute 1.51 1.07 - 3.94 x10E9/L 03/02/2020 10:25 AM CDT [facility] Monocytes Absolute 0.41 0.26 - 1.07 x10E9/L 03/02/2020 10:25 AM CDT [facility] Eosinophils Absolute 0.16 0 - 0.47 x10E9/L 03/02/2020 10:25 AM CDT [facility] Basophils Absolute 0.07 0 - 0.08 x10E9/L 03/02/2020 10:25 AM CDT [facility] Immature Granulocytes Absolute 0.04 0.00 - 0.06 x10E9/L 03/02/2020 10:25 AM CDT [facility] nRBC Auto 0 /100 WBC 03/02/2020 10:25 AM CDT [facility] Blood BLOOD SPECIMEN / Unknown Venipuncture / Unknown 03/02/2020 9:57 AM CDT 03/02/2020 10:11 AM CDT Fareed Greer MD LAB - HEMATOLOGY ORDERABLES [facility] [address] [place] [address] * (ABNORMAL) COMPREHENSIVE METABOLIC PANEL (03/02/2020 9:57 AM CDT) [facility] Glucose 83 70 - 105 mg/dL 03/02/2020 10:29 AM CDT [facility] Sodium 139 136 - 145 mmol/L 03/02/2020 10:29 AM CDT [facility] Potassium 3.7 3.5 - 5.1 mmol/L 03/02/2020 10:29 AM CDT [facility] Chloride 104 98 - 107 mmol/L 03/02/2020 10:29 AM CDT [facility] CO2 21(L) 23 - 31 mmol/L 03/02/2020 10:29 AM CDT [facility] Calcium 9.2 8.4 - 10.4 mg/dL 03/02/2020 10:29 AM CDT [facility] Anion Gap 14 8 - 16 mmol/L 03/02/2020 10:29 AM CDT [facility] BUN 8(L) 9.8 - 20.1 mg/dL 03/02/2020 10:29 AM CDT [facility] Creatinine 0.76 0.57 - 1.11 mg/dL 03/02/2020 10:29 AM CDT [facility] Alkaline Phosphatase 109 40 - 150 U/L 03/02/2020 10:29 AM CDT [facility] ALT 20 0 - 61 U/L 03/02/2020 10:29 AM CDT [facility] AST 11 5 - 34 U/L 03/02/2020 10:29 AM CDT [facility] Protein Total 7.8 6.4 - 8.3 gm/dL 03/02/2020 10:29 AM CDT [facility] Albumin 3.8 3.5 - 5.2 gm/dL 03/02/2020 10:29 AM CDT [facility] Bilirubin Total 0.4 0.2 - 1.0 mg/dL 03/02/2020 10:29 AM CDT [facility] eGFR by MDRD >60 >60 mL/min/1.7 3m2 03/02/2020 10:29 AM CDT [facility] eGFR by MDRD >60 >60 mL/min/1.7 3m2 03/02/2020 10:29 AM CDT [facility] Blood BLOOD SPECIMEN / Unknown Venipuncture / Unknown 03/02/2020 9:57 AM CDT 03/02/2020 10:11 AM CDT Fareed Greer MD LAB - CHEMISTRY O RDERABLES Performing Organization Address City/[facility]/ZIP Co de Phone Number [facility] AT [address] [address] * LIPASE BLOOD (03/02/2020 9:57 AM CDT) Lipase 32 8 - 78 U/L 03/02/2020 11:17 AM CDT [facility] Blood BLOOD SPECIMEN / Unknown Venipuncture / Unknown 03/02/2020 9:57 AM CDT 03/02/2020 10:11 AM CDT Lola BERNARD LAB - CHEM ISTRY ORDERABLES Performing Organization Address City/[facility]/ZIP Co de Phone Number [facility] [address] [address] * CARDIAC EKG ORDER (01/18/2020 3:24 PM CDT) Narrative 01/18/2020 3:24 PM CDT Ordered by an unspecified provider. Scanned Document CARDIAC SERVICES ORD ERABLES * CT CHEST PE (01/17/2020 12:30 PM CDT) Anatomical Region Laterality Modality Chest Computed Tomogra phy 01/17/2020 12:3 2 PM CDT Impressions 01/17/2020 12:35 PM CDT No evidence of PE or acute intrathoracic pathology. *[place] Radiologist: Gonzalez Garcia MD on 01/17/2020 at 12:35 PM Narrative 01/17/2020 12:[address] angiography chest with contrast. HISTORY: Intermittent chest pain, cough, elevated d-dimer, history of right knee surgery TECHNIQUE: Helical CT angiographic acquisition of chest with intravenous iodinated contrast. PE protocol: The phase of contrast imaging was timed to the pulmonary arterial system for evaluation of pulmonary arterial embolus. Radiologist interpreted 3-D post processing of the raw data, specifically MIP, performed with image capture by the technologist. All CT scans at [facility] are performed using dose optimization techniques as appropriate to a performed exam to include AEC and Adjustment of mA and/or kV according to patient size (as appropriate to indication/reason for exam). Contrast: 80 mL of Isovue-370 COMPARISON: None FINDINGS: The peripheral soft tissues are unremarkable. There is no significant axillary or thoracic inlet lymphadenopathy. The thyroid glands appear normal. The heart and the mediastinum appear normal. There is a mild hiatal hernia. 2 cm bilobed hepatic dome hypodensity is seen with simple fluid attenuation, likely a simple cyst. There is excellent opacification of the pulmonary arteries without any evidence of PE. The thoracic aorta appears within normal limits. The central airways are patent. There is no gross pleural effusion or pneumothorax. Lung gonzalez are hypoaerated with mild bilateral dependent atelectasis. No focal infiltrates or consolidation identified. No lytic or blastic lesions identified. Procedure Note Gonzalez Garcia MD - 01/17/2020 CT angiography chest with contrast. HISTORY: Intermittent chest pain, cough, elevated d-dimer, history of right knee surgery TECHNIQUE: Helical CT angiographic acquisition of chest with intravenous iodinated contrast. PE protocol: The phase of contrast imaging was timed to the pulmonary arterial system for evaluation of pulmonary arterial embolus. Radiologist interpreted 3-D post processing of the raw data, specifically MIP, performed with image capture by the technologist. All CT scans at [facility] are performed using dose optimization techniques as appropriate to a performed exam to include AEC and Adjustment of mA and/or kV according to patient size (as appropriate to indication/reason for exam). Contrast: 80 mL of Isovue-370 COMPARISON: None FINDINGS: The peripheral soft tissues are unremarkable. There is no significant axillary or thoracic inlet lymphadenopathy. The thyroid glands appear normal. The heart and the mediastinum appear normal. There is a mild hiatal hernia. 2 cm bilobed hepatic dome hypodensity is seen with simple fluid attenuation, likely a simple cyst. There is excellent opacification of the pulmonary arteries without any evidence of PE. The thoracic aorta appears within normal limits. The central airways are patent. There is no gross pleural effusion or pneumothorax. Lung gonzalez are hypoaerated with mild bilateral dependent atelectasis. No focal infiltrates or consolidation identified. No lytic or blastic lesions identified. IMPRESSION No evidence of PE or acute intrathoracic pathology. *[place] Radiologist: Gonzalez Garcia MD on 01/17/2020 at 12:35 PM Martin Guerrero MD CT ORDERABLES * (ABNORMAL) BASIC METABOLIC PANEL (CALCIUM TOTAL) (01/17/2020 11:06 AM CDT) [facility] Glucose 97 70 - 105 mg/dL 01/17/2020 11:28 AM CDT [facility] Sodium 139 136 - 145 mmol/L 01/17/2020 11:28 AM CDT [facility] Potassium 3.8 3.5 - 5.1 mmol/L 01/17/2020 11:28 AM CDT [facility] Chloride 104 98 - 107 mmol/L 01/17/2020 11:28 AM CDT [facility] CO2 22(L) 23 - 31 mmol/L 01/17/2020 11:28 AM CDT [facility] Calcium 8.8 8.4 - 10.4 mg/dL 01/17/2020 11:28 AM CDT [facility] Anion Gap 13 8 - 16 mmol/L 01/17/2020 11:28 AM CDT [facility] BUN 12 9.8 - 20.1 mg/dL 01/17/2020 11:28 AM CDT [facility] Creatinine 0.77 0.57 - 1.11 mg/dL 01/17/2020 11:28 AM CDT [facility] eGFR by MDRD >60 >60 mL/min/1.7 3m2 01/17/2020 11:28 AM CDT [facility] eGFR by MDRD >60 >60 mL/min/1.7 3m2 01/17/2020 11:28 AM CDT [facility] Blood BLOOD SPECIMEN / Unknown Venipuncture / Unknown 01/17/2020 11:06 AM CDT 01/17/2020 11:10 AM CDT Martin Guerrero MD LAB - CHEMISTRY ORD ERABLES [facility] AT [address] [address] * TROPONIN I (01/17/2020 11:05 AM CDT) Troponin I <0.010 <0.038 ng/mL 01/17/2020 11:31 AM CDT [facility] Blood BLOOD SPECIMEN / Unknown Venipuncture / Unknown 01/17/2020 11:05 AM CDT 01/17/2020 11:10 AM CDT Martin Guerrero MD LAB - CHEMISTRY ORD ERABLES Performing Organization Address [facility]/ZIP Co de Phone Number [facility] AT [address] [address] * (ABNORMAL) D-DIMER (01/17/2020 11:05 AM CDT) Pathologist [facility] D-Dimer 0.76(H) 0.27 - 0.5 ug/mL FEU 01/17/2020 11:24 AM CDT [facility] Blood BLOOD SPECIMEN / Unknown Venipuncture / Unknown 01/17/2020 11:05 AM CDT 01/17/2020 11:10 AM CDT Narrative [facility] - 01/17/2020 11:24 AM CDT In the absence of clinical symptoms, a value less than or equal to 0.5 mcg/mL FEU significantly decreases the probability of PE/DVT (negative predictive value >95%). 1 mcg/ml FEU = 1 Fibrinogen Equivalent Unit (approximates 0.5 mcg/mL of D- dimer). Martin Guerrero MD LAB - COAGULATION O RDERABLES [facility] AT [address] [address] * XR CHEST PA AND LATERAL (01/17/2020 10:22 AM CDT) Anatomical Region Laterality Modality Chest Radiographic Yarely ging 01/17/2020 10:2 4 AM CDT Impressions 01/17/2020 10:25 AM CDT No active disease. *Reading Radiologist: Martin Vega MD on 01/17/2020 at 10:25 AM Narrative 01/17/2020 10:25 AM CDT Chest 2 views: History: Intermittent chest pain beginning last night with associated intermittent mild headache. Technique: Frontal and lateral views of the chest were obtained on 01/17/2020. No relevant prior study is available. Findings: The lungs are clear with no pleural effusion or pneumothorax. The heart and mediastinum are unremarkable. Procedure Note Martin Vega MD - 01/17/2020 Chest 2 views: History: Intermittent chest pain beginning last night with associated intermittent mild headache. Technique: Frontal and lateral views of the chest were obtained on 01/17/2020. No relevant prior study is available. Findings: The lungs are clear with no pleural effusion or pneumothorax. The heart and mediastinum are unremarkable. IMPRESSION No active disease. *Reading Radiologist: Martin Vega MD on 01/17/2020 at 10:25 AM Martin Guerrero MD DIAGNOSTIC IMAGING ORDERABLES * EKG 12-LEAD (01/17/2020 9:35 AM CDT) Ventricular Rate 110 BPM [facility] Atrial Rate 110 BPM [facility] P-R Interval 134 ms [facility] QRS Duration ms 74 ms [facility] Q-T Interval ms 316 ms [facility] QTC Calculation (Bezet) 427 ms [facility] Calculated P Harrison 42 degrees [facility] Calculated R Harrison 21 degrees [facility] Calculated T Harrison 15 degrees [facility] Interpretation EKG Sinus tachycardia Possible Left atrial enlargement Borderline ECG Confirmed by MANDY MITTAL, [facility] ([id number]) on 01/18/2020 10:19:59 AM [facility] 01/17/2020 9:35 AM CDT 01/18/2020 10:19 AM CDT Martin Guerrero MD ECG ORDERABLES [facility] * MAMMO DIAG DIRECT DIGITAL IMAGE UNIL LEFT [id number] (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 TECHNIQUE: Left CC and MLO with 3-D digital tomosynthesis, spot compression left breast in CC and MLO projections. CAD was utilized. TECHNOLOGIST: Nanda Padilla, RT(R)(M). TISSUE DENSITY: Heterogeneously dense. This may lower the sensitivity of mammography. Please correlate with clinical examination. FINDINGS: An ovoid nodule persists in the left breast just medial to the nipple line on CC view. This features a smooth well-circumscribed margin. This appears to lie at or just below the level of the nipple on MLO projection, better seen on spot compression. On tomosynthesis, a fatty hilum can be seen directed laterally and anteriorly. The appearance is consistent with an intramammary lymph node. ASSESSMENT: BI-RADS 2: Benign finding. RECOMMENDATIONS: Continue screening mammography on schedule. The above findings should be correlated with physical examination. A relatively nonspecific study should not preclude additional evaluation if suspicious findings are present clinically. An [employer] [facility] utilizes [employer] as a reminder system to notify patients of their next recommended mammogram. Edited by Izabella Boateng on 09/26/2016 4:13 PM Melissa Corrigan MD MAMMO ORDERABLES Care Teams Mat Making Machine Tender Relationship Specialty Start Date End Date Melissa Corrigan MD [facility] [place] [address] PCP - General 12/02/18
--- OUTSIDE RECORDS SUMMARY | 2024-12-19 17:22 | XMS_ITS | Referral Summary ---
Author Organization [facility] Address [address] [place] [address] Care Team Providers Care Clinical Manager Name Role Phone Melissa Corrigan MD Primary Care Provider Source Comments [facility],non-owned Affiliates and Associated Physician Practices is amultiple site organization consisting of ambulatory clinics and hospital sitesin [place], [place], [place] and [place]. This disclosure is being madepursuant to the Care Everywhere program and may not contain all information available regarding this patient. Last updated 18.[facility] [place] Allergies Active Allergy Reactions Criticality Noted Date [...] 03/02/2020 9:31 AM CDT Plan of Treatment Not on file Care Teams Clinical Manager Relationship Specialty Start Date End Date Melissa Corrigan MD [facility] [place] [id number] PCP - General 12/02/18
--- OUTSIDE RECORDS SUMMARY | 2024-12-19 17:25 | XMS_ITS | Continuity of Care Document ---
Author Organization [facility] Address [address] [place] [address] Phone Care Team Providers Care Delivery Specialist Name Role Phone Roberto Carlos Lou Unavailable [...] Providers Copied on Encounter Office/outpa tient visit,est, [facility], [address] [address], [place], [place], [id number], [place] tel:[phone] [facility] right knee (chief complaint) Pain in right kneeUnilateral primary osteoarthritis , right knee Sep-0 1 Dasha Ngoer. [address] [facility], [address] [address], [place], [place], [id number], [place]. tel:[phone] [facility], [address] [address], [place], [place], [id number], [place] tel:[phone] [facility] No Information Sep-0 1 Administrati ve Provider. [address] [address], [place], [place], [id number], [place]. tel:[phone] [facility], [address] [address], [place], [place], [id number], [place] tel:[phone] [facility] Unsp fracture of upper end of unsp tibia, init for clos fx Dec-1 0 Dinan Florecita. [address] [facility], [address] [address], [place], [place], [id number], [place]. tel:[phone] Office/outpa tient visit,est, [facility], [address] [address], [place], [place], [id number], [place] tel:[phone] [facility] Right Knee (chief complaint) Fracture of upper end of tibia, initial encounter for closed fracture Mar-0 0 Dasha Ngoer. [address] [facility], [facility] [address], [place], [place], [id number], [place]. tel:[phone] [facility], [address] [address], [place], [place], [id number], [place] tel:[phone] [facility] No Information Mar-0 0 Administrati ve Provider. [address] [facility], [address] [address], [place], [place], [id number], [place]. tel:[phone] [facility], [address], [id number], tel:[phone] [facility] No Information Administrati ve Provider. [address] [facility], [facility] [address], [place], [place], [id number], [place]. tel:[phone] Office/outpa tient visit,new, [facility], [address], [id number], tel:[phone] [facility] Right Knee (chief complaint) Pain in right kneeFracture of upper end of tibia, initial encounter for closed fracture Dasha Azevedo. [address] [facility], [address] [address], [place], [place], [id number], [place]. tel:[phone] Family History Family Member Type Diagnosis Age At Onset Mother Problem (finding) Stroke Mother Problem (finding) Hypertension Mother Problem (finding) Kidney Disease Payers Payer name Insurance type Covered constitution party ID Authorargelia tian(s) Sally Meza [facility] [id number] Social History Type Description Quantity Date [...] '06/27/2021 08:00'. right knee (chief complaint). Description: Barbaar is a 55 year-old female who presents to the office for evaluation of right knee pain. She is approximately one year status post ORIF of her complex right tibial plateau fracture. This was fixed through a midline approach at [facility] by the trauma service.She did have some fibrosis this is somewhat resolving. She does have some knee pain predominantly medially. She has medial sided arthritis pain. Is tolerable. Range of motion is improving although somewhat limited in flexion. She wishes to go on a trip to [place] next year. Reason For Referral Reason For [...] was fixed through a midline approach at [facility] by the trauma service. She did have some fibrosis this is somewhat resolving. She does have some knee pain predominantly medially. She has medial sided arthritis pain. Is tolerable. Range of motion is improving although somewhat limited in flexion. She wishes to go on a trip to [place] next year. Right Knee Right Knee Barbara [...]
[2024-12-19 17:58] VITALS: BP 124/75; PULSE 78; RESP 16; TEMP 36; O2SAT 99
--- NOTE | 2024-12-19 17:59 | ED.LOWEXIN ---
HPI - Extremity Injury (Lower) General Chief Complaint: Extremity Injury, Lower Stated Complaint: Ankle injury Time Seen by Provider: 12/19/24 18:00 Source: patient Mode of arrival: ambulatory Limitations: no limitations History of Present Illness HPI Narrative: 59-year-old female presented for complaint of left ankle pain and swelling after injury today. She states she was walking outside when she slipped on a gumball and rolled the foot inward. Denies numbness, tingling, weakness or deformity. Taking Tylenol and ibuprofen. Related Data Allergies Allergy/AdvReac Type Severity Reaction Status Date / Time Penicillins AdvReac Intermediate Nausea and Verified 12/19/24 18:17 Vomiting Review of Systems Review of Systems: CONSTITUTIONAL: Denies body aches, fever, chills EYES: Denies visual changes ENT: Denies rhinorrhea, congestion CARDIOVASCULAR: Denies chest pain, palpitations, or edema. RESPIRATORY: Denies cough or dyspnea. GASTROINTESTINAL: Denies abdominal pain, nausea, vomiting, or diarrhea. SKIN: Denies rash, itching, or wounds. MUSCULOSKELETAL: Denies back pain, joint pain, or myalgia. NEUROLOGIC: Denies headache, numbness, tingling, or weakness. PSYCH: Denies depression or anxiety. All systems reviewed & are unremarkable except as noted in HPI and below PMFSH Social History Social History Smoking status: Never smoker Alcohol intake: never Comments At time of signature, I have reviewed and agree with nursing past medical, surgical, social and family history unless otherwise noted. Please see nursing chart for further information. There is no relevant family history pertinent to the presenting complaint Exam Narrative: GENERAL: Well-appearing CHEST: Speaks in full sentences. No respiratory distress. HEART: Regular rate and rhythm. Normal and equal peripheral pulses. EXTREMITIES: Left foot has normal strength and sensation. limited range of motion with flexion/extension/rotation of left ankle due to pain with movement. Moderate swelling to lateral malleolus, tender to palpation. No ecchymosis, No open wounds, or obvious deformity; alignment normal, pulse palpable and equal bilaterally, skin warm, dry, pink. Capillary refill less than 3 seconds. SKIN: Warm, dry NEURO: Alert and oriented x3. PSYCH: Normal mood and affect Course Course Emergency Course: Patient is aware of diagnosis, understands and agrees to treatment plan. Anticipatory guidance given. Patient agrees to follow-up as directed and is aware of reasons to seek care at the emergency department. Portions of this record may have been created with voice recognition software Level of Care: Express Care Visit Vital Signs Vital signs: Vital Signs Temperature 96.8 F L 12/19/24 17:58 Pulse Rate 78 12/19/24 17:58 Respiratory Rate 16 12/19/24 17:58 Blood Pressure 124/75 12/19/24 17:58 Pulse Oximetry 99 12/19/24 17:58 Oxygen Delivery Room Air 12/19/24 17:58 Temperature 96.8 F L 12/19/24 17:58 Pulse Rate 78 12/19/24 17:58 Respiratory Rate 16 12/19/24 17:58 Blood Pressure 124/75 12/19/24 17:58 Pulse Oximetry 99 12/19/24 17:58 Oxygen Delivery Room Air 12/19/24 17:58 Reviewed Procedures Orthopedic Splinting/Casting left ankle: Splinting/Casting Date: 12/19/24 OCL: posterior Pre-Procedure Neuro Vascular Exam: normal Post-Procedure Neuro Vascular Exam: normal Other Orthopedic Equipment: crutches MDM - Extremity Injury (Lower) MDM Narrative Medical decision making narrative: Discussed physical exam findings and x-ray. Advised supportive measures and signs/symptoms to go to the ER. Pt is appropriate for outpt treatment and f/u. Discharge Plan Discharge Clinical Impression: Fracture of distal end of fibula Patient Disposition: Home, Self-Care Condition: Stable Instructions: Ankle Fracture (ED) Additional Instructions: Rest, ice and elevate the left leg Motrin 600mg every 8 hours, as needed, for pain (take with food). Tylenol 1000mg every 8 hours. Keep splint clean, dry and in place. Use garbage bag while showering to keep splint dry. Use crutches to avoid weight bearing. Go to the ER immediately for increased pain, tingling/numbness, swelling, redness, and fever Follow up with Orthopedic Surgery in 1-2 days for further evaluation - please call for an appointment. Patient Language: Portuguese Follow-up/Referrals: Meek Madrigal MD [Physician] - UNKNOWN,DOCTOR [Primary Care Provider] - Time of Disposition: 19:09
== END 2024-12-19 19:14 | disposition home or self-care (01) ==
PROVIDERS: Emergency Provider Nurse Practitioner Family
DX: S82.832A Other fracture of upper and lower end of left fibula, initial encounter for closed fracture (principal); W22.8XXA Striking against or struck by other objects, initial encounter
CPT/HCPCS: 29515; 73610; 99214; G0463